=== PATIENT | male | born 1995 | race Caucasian/White ===

== ENCOUNTER 2017-01-18 07:05 | Emergency (ER) | payer OTHER ==
[2017-01-18 07:46] VITALS: BP 146/67
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
== END 2017-01-18 08:23 | disposition home or self-care (01) ==
LOC: M ED 07:05 → EDBD 07:05 → M ED 08:23
DX: M25.511 Pain in right shoulder (principal); M25.512 Pain in left shoulder; V43.62XA Car passenger injured in collision with other type car in traffic accident, initial encounter; Y92.410 Unspecified street and highway as the place of occurrence of the external cause; Y93.84 Activity, sleeping; Y99.9 Unspecified external cause status